=== PATIENT | female | born 2000 | race African-American/Black ===

== ENCOUNTER 2023-09-08 09:52 | Emergency (ER) | payer OTHER, SELFPAY ==
[2023-09-08 09:53] VITALS: BP 128/93; PULSE 69; RESP 16; TEMP 37; O2SAT 100
--- NOTE | 2023-09-08 10:30 | ED.BACK ---
HPI - Back Pain/Injury General Chief Complaint: Back Pain/Injury Stated Complaint: back pain Time Seen by Provider: 09/08/23 10:24 Source: patient Mode of arrival: ambulatory Limitations: no limitations History of Present Illness HPI Narrative: Melly is a 23-year-old female patient presenting to the clinic today with complaints of low back pain for the past several weeks. Was recently diagnosed with scoliosis. Has not been taking any Tylenol or Motrin for her back pain. Denies any saddle anesthesia or loss of bowel or bladder. Denies any muscle weakness in her legs. Related Data Allergies Allergy/AdvReac Type Severity Reaction Status Date / Time No Known Allergies Allergy Verified 09/08/23 10:03 Review of Systems Review of Systems: Pertinent positives per HPI. Patient denies any fever, chills, rash, headache, visual changes, dizziness, cough, runny nose, sore throat, shortness of breath, chest pain, palpitations, nausea, vomiting, diarrhea, constipation, abdominal pain, or any urinary issues. PMFSH Comments At the time of my signature, I reviewed and agree with the nursing past medical, surgical, social, and family history. There is no relevant family history pertinent to the patient complaint. Exam Narrative: General: Well-developed, well nourished, in no apparent distress Head: Normocephalic, atraumatic. Cardio: Regular rate and rhythm, s1 and s2 normal, no murmur appreciated. Resp: Clear to auscultation bilaterally, no rhonchi, rales, wheezing or rubs. Musculoskeletal: No deformity, tender to palpation over the lumbar spine and paraspinous musculature, grossly normal range of motion, muscle strength strong and equal, peripheral pulse strong, no edema, no cyanosis, normal gait and station Course Course Emergency Course: Portions of this record may have been created with voice recognition software. Vital Signs Vital signs: Vital Signs Temperature 37.0 C 09/08/23 09:53 Pulse Rate 69 09/08/23 09:53 Respiratory Rate 16 09/08/23 09:53 Blood Pressure 128/93 H 09/08/23 09:53 Pulse Oximetry 100 09/08/23 09:53 Oxygen Delivery Room Air 09/08/23 09:53 Temperature 37.0 C 09/08/23 09:53 Pulse Rate 69 09/08/23 09:53 Respiratory Rate 16 09/08/23 09:53 Blood Pressure 128/93 H 09/08/23 09:53 Pulse Oximetry 100 09/08/23 09:53 Oxygen Delivery Room Air 09/08/23 09:53 Vital signs reviewed MDM - Back Pain/Injury MDM Narrative Medical decision making narrative: At the time of visit patient is resting comfortably on the exam table. Patient appears to be nontoxic. Medications: Naproxen 500 mg p.o. given in the ER today. Plan: I suspect patient has low back pain with recent diagnosis of scoliosis. Will place the patient on naproxen and send prescription for lidocaine patch as well. Supportive measures were discussed with the patient and they voiced understanding discharge instructions and agrees to treatment plan. Return precautions reviewed Differential Diagnosis Differential diagnosis: Likely lumbar radiculopathy, sciatica, strain of lumbar region, renal colic, pyelonephritis, thoracic back pain, discitis and other (Scoliosis) Discharge Plan Discharge Clinical Impression: Low back pain Qualifiers: Chronicity: acute Back pain laterality: bilateral Sciatica presence: without sciatica Qualified Code(s): M54.50 - Low back pain, unspecified Patient Disposition: Home, Self-Care Condition: Stable Instructions: Antibiotic Form, Acute Low Back Pain (ED), Lower Back Exercises (ED) Additional Instructions: Take any prescription medication only as prescribed-naproxen May use heat or ice to the affected area Consider massage or chiropractor adjustment if this was discussed with provider May use blue emu, lidocaine patches, or asper cream to affected area- do not apply heat or ice directly over cream- can cause burn. Complete appropriate back stretching exercis
[2023-09-08] MEDS: NAPROXEN 500 MG TABLET PO (10:36)
[2023-09-08 10:46] VITALS: BP 116/74; PULSE 74; RESP 16; TEMP 36.8; O2SAT 100
== END 2023-09-08 10:50 | disposition home or self-care (01) ==
LOC: ANHED 10:40
PROVIDERS: Emergency Provider Nurse Practitioner Family; PCP Nurse Practitioner
DX: M54.50 Low back pain, unspecified (principal)
CPT/HCPCS: 99283; A9270